=== PATIENT | male | born 1990 | race Caucasian/White ===

== ENCOUNTER 2019-02-05 10:34 | Emergency (ER) | payer MEDICAID ==
[~2019-02-05] VITALS: Ht 167.6 cm; Wt 68.2 kg
[~2019-02-05 10:34] MED LIST: PROVENTIL0.09 MG/A1 IH
[2019-02-05 10:41] VITALS: BP 146/81; TEMP 98.5
[2019-02-05] MEDS ORDERED: PREDNISONE20 MG PO (10:56)
[2019-02-05] MEDS ORDERED: ZITHROMAX 250M250 MG PO (10:56)
[2019-02-05 11:45] VITALS: PULSE 104
== END 2019-02-05 11:46 | disposition home or self-care (01) ==
LOC: COL.ER 10:34
DX: J45.901 Unspecified asthma with (acute) exacerbation (principal); J20.9 Acute bronchitis, unspecified; F17.210 Nicotine dependence, cigarettes, uncomplicated
CPT/HCPCS: J7512

== ENCOUNTER 2019-05-07 15:59 | Emergency (ER) | payer MEDICAID ==
[~2019-05-07] VITALS: Ht 167.6 cm; Wt 70.5 kg
[~2019-05-07 15:59] MED LIST changes: +PREDNISONE20 MG PO; +ZITHROMAX 250M250 MG PO
[2019-05-07 16:12] VITALS: BP 132/69; TEMP 98.4
[2019-05-07] MEDS ORDERED: ZITHROMAX Z PA250 MG PO (17:40)
[2019-05-07] MEDS ORDERED: PREDNISONE20 MG PO (17:40)
[2019-05-07 17:57] VITALS: PULSE 83
== END 2019-05-07 17:57 | disposition home or self-care (01) ==
LOC: COL.ER 15:59
DX: J45.901 Unspecified asthma with (acute) exacerbation (principal); F17.210 Nicotine dependence, cigarettes, uncomplicated
CPT/HCPCS: J7512

== ENCOUNTER 2021-02-24 23:16 | Emergency (ER) | payer MEDICAID ==
[~2021-02-24] VITALS: Ht 167.6 cm; Wt 72.7 kg
[~2021-02-24 23:16] MED LIST changes: +ZITHROMAX Z PA250 MG PO
[2021-02-25 00:15] LABS: BASO # 0.1 (0.0-0.2); BASO % 0.7 % (0.0-2.0); EOS # 0.2 (0.0-0.7); EOS % 1.9 % (0-4.0); GRAN # 6.9 (1.4-6.5); GRAN % 66.9 % (42.2-75.2); HEMOGLOBIN 15.6 g/dl (13.5-18.0); LYMPH # 2.3 (1.2-3.4); LYMPH % 22.1 % (20.0-51.0); MEAN CELL VOLUME 88 fl (80.0-100.0); MEAN CORPUSCULAR HEMOGLOBIN 31 pg (27.0-31.0); MEAN CORPUSCULAR HGB CONC 36 g/dl (33.0-37.0); MEAN PLATELET VOLUME 9.5 fl (7.4-10.4); MONO # 0.8 (0.1-0.6); MONO % 7.9 % (1.7-9.3); PLATELET COUNT 226 K/mm3 (130-400); REDCELL DISTRIBUTION WIDTH-CV 11.9 % (11.5-14.5)
[2021-02-25 00:37] LABS: ALANINE AMINOTRANSFERASE 11 U/L (4-49); ALBUMIN 3.9 gm/dL (3.5-5.0); ALKALINE PHOSPHATASE 49 U/L (50-136); ANION GAP 7 mmol/L (7-16); AST,SGOT 24 U/L (15-37); BILIRUBIN,TOTAL 1.7 mg/dL (0.0-1.0); BLOOD UREA NITROGEN 20 mg/dL (9-20); CALCIUM 9.2 mg/dL (8.4-10.2); CARBON DIOXIDE 27 mmol/L (22-30); CHLORIDE 105 mmol/L (98-107); CREATININE, serum 1.05 (0.66-1.25); GLUCOSE 101 mg/dL (74-106); POTASSIUM 3.5 mmol/L (3.4-5.0); SODIUM 138 mmol/L (137-145); TOTAL PROTEIN 6.6 gm/dL (6.4-8.2)
[2021-02-25 00:49] LABS: TROPONIN-I < 0.012 ng/mL (0.000-0.035)
[2021-02-25] MEDS ORDERED: AMOXICILLIN 50500 MG PO (01:07)
[2021-02-25 01:16] VITALS: BP 135/87; PULSE 85; TEMP 97.9
== END 2021-02-25 01:16 | disposition home or self-care (01) ==
LOC: COL.ER 23:16
PROVIDERS: Personal Emergency Response Attendant
DX: K02.9 Dental caries, unspecified (principal); R07.89 Other chest pain; J45.909 Unspecified asthma, uncomplicated; Z88.5 Allergy status to narcotic agent; Z79.51 Long term (current) use of inhaled steroids
CPT/HCPCS: J0696

== ENCOUNTER 2021-04-04 05:01 | Emergency (ER) | payer MEDICAID ==
[~2021-04-04] VITALS: Ht 167.6 cm; Wt 73.5 kg
[~2021-04-04 05:01] MED LIST changes: +AMOXICILLIN 50500 MG PO
[2021-04-04 05:04] VITALS: TEMP 98.1
[2021-04-04 05:35] LABS: BASO # 0.1 (0.0-0.2); BASO % 0.7 % (0.0-2.0); EOS # 0.2 (0.0-0.7); EOS % 1.8 % (0-4.0); GRAN # 6.5 (1.4-6.5); GRAN % 68.8 % (42.2-75.2); HEMATOCRIT 49.2 % (42.0-52.0); LYMPH # 1.9 (1.2-3.4); LYMPH % 20.4 % (20.0-51.0); MEAN CELL VOLUME 91 fl (80.0-100.0); MEAN CORPUSCULAR HEMOGLOBIN 31 pg (27.0-31.0); MEAN CORPUSCULAR HGB CONC 35 g/dl (33.0-37.0); MEAN PLATELET VOLUME 9.3 fl (7.4-10.4); MONO # 0.7 (0.1-0.6); MONO % 7.8 % (1.7-9.3); PLATELET COUNT 248 K/mm3 (130-400); RED BLOOD COUNT 5.43 M/mm3 (4.20-5.60); REDCELL DISTRIBUTION WIDTH-CV 12.8 % (11.5-14.5)
[2021-04-04 05:43] LABS: ALBUMIN 4.7 gm/dL (3.5-5.0); C-REACTIVE PROTEIN 0.6 mg/dL (0.0-0.9); CALCIUM 9.5 mg/dL (8.4-10.2); CREATININE, serum 0.82 (0.66-1.25); POTASSIUM 3.9 mmol/L (3.4-5.0); TOTAL PROTEIN 7.8 gm/dL (6.4-8.2)
[2021-04-04 06:10] LABS: ERYTHROCYTE SEDIMENTATION RATE 1 mm/hr (0-15)
[2021-04-04 06:55] VITALS: BP 130/86
[2021-04-04 07:01] LABS: COLLECTION METHOD CLEAN CATCH
[2021-04-04 07:16] LABS: PH 8 (5-8); SQUAMOUS EPITHELIAL None Seen /hpf; URINE APPEARANCE Clear; URINE BACTERIA None Seen /hpf; URINE BILIRUBIN Negative (NEGATIVE); URINE BLOOD 3+ (NEGATIVE); URINE COLOR Yellow; URINE GLUCOSE Negative (NEGATIVE); URINE KETONE Negative (NEGATIVE); URINE LEUKOCYTE ESTERASE Negative (NEGATIVE); URINE NITRATE Negative (NEGATIVE); URINE PROTEIN(semi-quant) 1+ (NEGATIVE); URINE RBC 20-50 /hpf; URINE UROBILINOGEN Negative (NEGATIVE); URINE WBC 0-2 /hpf
[2021-04-04] MEDS ORDERED: PROAIR HFA0.09 MG/AC IH (07:35)
[2021-04-04] MEDS ORDERED: DOXYCYCLINE 10100 MG PO (07:35)
[2021-04-04] MEDS ORDERED: PEPCID 20MG TAB20 MG PO (07:35)
[2021-04-04] MEDS ORDERED: ZOFRAN ODT4 MG PO (07:35)
[2021-04-04] MEDS ORDERED: MUCINEX 60600 MG/TA1 PO (07:36)
[2021-04-04] MEDS ORDERED: PREDNISONE20 MG PO (07:36)
[2021-04-04] MEDS ORDERED: IMODIUM 2MG CAPS2 MG PO (07:36)
[2021-04-04 07:44] VITALS: PULSE 73
== END 2021-04-04 07:44 | disposition home or self-care (01) ==
LOC: COL.ER 05:01
PROVIDERS: Emergency Medicine
DX: R05 Cough (principal); E86.0 Dehydration; R11.2 Nausea with vomiting, unspecified; R19.7 Diarrhea, unspecified; R06.02 Shortness of breath; R06.2 Wheezing; F17.210 Nicotine dependence, cigarettes, uncomplicated; Z20.822 Contact with and (suspected) exposure to COVID-19
CPT/HCPCS: J0696; J1100; J2405; J7030

== ENCOUNTER 2024-04-20 20:13 | Emergency (ER) | payer MEDICAID ==
[~2024-04-20] VITALS: Ht 167.6 cm; Wt 72.7 kg
[~2024-04-20 20:13] MED LIST changes: +DOXYCYCLINE 10100 MG PO; +IMODIUM 2MG CAPS2 MG PO; +MUCINEX 60600 MG/TA1 PO; +PEPCID 20MG TAB20 MG PO; +PROAIR HFA0.09 MG/AC IH; +ZOFRAN ODT4 MG PO
[2024-04-20 20:20] VITALS: TEMP 99.1
[2024-04-20] MEDS ORDERED: PEN-VEE K500 MG PO (21:07)
[2024-04-20] MEDS ORDERED: Ketorolac 30 MG/ML VIAL IM ONE (21:15)
[2024-04-20 21:28] VITALS: BP 131/76; PULSE 80
== END 2024-04-20 21:28 | disposition home or self-care (01) ==
LOC: COL.ER 20:13
DX: K02.9 Dental caries, unspecified (principal); F17.200 Nicotine dependence, unspecified, uncomplicated
CPT/HCPCS: J1885